=== PATIENT | male | born 1980 | race Two or more races ===

== ENCOUNTER 2018-05-04 22:55 | Emergency (ER) | payer SELFPAY ==
[~2018-05-04] VITALS: Ht 172.7 cm; Wt 79.4 kg
--- NOTE | 2018-05-04 23:46 | NUR ---
pt bbself from home c/c of l arm pain x1 week with cp and sob x today. pt is aaox4. resp even and unlabored. no s/s of acute distress noted. vss. pt placed on potline monitor and pox. pt has full range of motion of the upper and lower extremities. pt is accompanied by friend/family. pt safety and comfort measures in place. awaiting md for eval.
--- NOTE | 2018-05-05 00:15 | NUR ---
MABEL [phone]
[2018-05-05] MEDS ORDERED: ALBUTEROL FS 2.5 MG/3 ML VIAL.NEB ONE (00:24)
[2018-05-05] MEDS ORDERED: ALBUTEROL FS 2.5 MG/3 ML VIAL.NEB NEB ONE (00:30)
[2018-05-05] MEDS ORDERED: predniSONE 20 MG TABLET PO ONE (00:30)
[2018-05-05] MEDS ORDERED: predniSONE 20 MG TABLET ONE (00:30)
[2018-05-05] MEDS ORDERED: ASPIRIN 81 MG TAB.CHEW ONE (00:30)
[2018-05-05] MEDS ORDERED: ASPIRIN 81 MG TAB.CHEW PO ONE (00:30)
--- NOTE | 2018-05-05 00:50 | NUR ---
BREATHING TREATMENT COMPLETED AND PT STATES HE "FEELS MUCH BETTER". WILL CONTINUE TO MONITOR PT. VSS AT THIS TIME.
[2018-05-05 00:52] LABS: BASOPHILS % (AUTO) 0.4 % (0.0-2.0); EOSINOPHILS % (AUTO) 5.9 % (0.0-6.0); HEMATOCRIT 54 % (39-51); HEMOGLOBIN 18.1 g/dL (13.5-17.5); LYMPHOCYTES # (AUTO) 1.5 /CMM (0.8-4.8); LYMPHOCYTES % (AUTO) 19.9 % (20.0-44.0); MEAN CORPUSCULAR HEMOGLOBIN 31 PG (26.0-33.0); MEAN CORPUSCULAR HGB CONC 34 g/dl (31.0-36.0); MEAN CORPUSCULAR VOLUME 92 fL (80-96); MONOCYTES # (AUTO) 0.6 /CMM (0.1-1.30); MONOCYTES % (AUTO) 8.2 % (2.0-12.0); NEUTROPHILS % (AUTO) 65.6 % (43.0-81.0); PLATELET COUNT (AUTO) 234 /CMM (150-450); RDW COEFFICIENT OF VARIATION 12.5 (11.5-15.0); RED BLOOD CELL COUNT(AUTO) 5.86 MIL/uL (4.5-6.0); WHITE BLOOD COUNT (AUTO) 7.7 K/uL (4.3-11.0)
[2018-05-05 00:57] LABS: TROPONIN I < 0.017 ng/mL (0.00-0.056)
[2018-05-05 01:06] LABS: EOSINOPHILS % (MANUAL) 3 % (0-4); LYMPHOCYTES % (MANUAL) 18 % (16-48); MONOCYTES % (MANUAL) 6 % (0-11.0); NEUTROPHILS % (MANUAL) 73 (42-76)
[2018-05-05 01:12] LABS: ALANINE AMINOTRANSFERASE 106 U/L (12-78); ALBUMIN 3.9 g/dL (3.4-5.0); ALKALINE PHOSPHATASE 141 U/L (46-116); ASPARTATE AMINOTRANSFERASE 31 U/L (15-37); BILIRUBIN,TOTAL 0.4 mg/dL (0.2-1.0); CALCIUM, SERUM 9.1 mg/dL (8.5-10.1); CARBON DIOXIDE 27 mmol/L (21-32); CHLORIDE 98 mmol/L (98-107); CREATININE 1.3 mg/dL (0.6-1.3); POTASSIUM 4.2 mmol/L (3.5-5.1); SODIUM SERUM 135 mmol/L (136-145); TOTAL PROTEIN, SERUM 8.4 g/dL (6.4-8.2); UREA NITROGEN, BLOOD 11 mg/dL (7-18)
--- NOTE | 2018-05-05 01:21 | NUR ---
PT TO RESTROOM
[2018-05-05 01:24] LABS: B-TYPE NATRIURETIC PEPTIDE < 5 PG/ML (0-125)
[2018-05-05 01:25] LABS: GLUCOSE 484 mg/dL (74-106)
[2018-05-05] MEDS ORDERED: INSULIN REGULAR, HUMAN 100 UNIT/ML 10 ML VIAL IV ONE (02:00)
[2018-05-05] MEDS ORDERED: INSULIN REGULAR, HUMAN 100 UNIT/ML 10 ML VIAL ONE (02:27)
--- NOTE | 2018-05-05 03:43 | NUR ---
Patient discharged to home in stable condition. Written and verbal after care instructions given. Patient verbalizes understanding of instruction.IV removed. Catheter intact and site benign. Pressure and 4x4 applied to site. No bleeding noted. VSS UPON DISCHARGE
[2018-05-05 03:44] VITALS: BP 138/96
== END 2018-05-05 03:46 | disposition home or self-care (01) ==
LOC: ER 22:57
DX: R07.89 Other chest pain (principal); M25.512 Pain in left shoulder; E11.9 Type 2 diabetes mellitus without complications; F17.200 Nicotine dependence, unspecified, uncomplicated
CPT/HCPCS: 36415; 71045; 80048; 80076; 82962 ×2; 83880; 84484; 85025; 93005; 94640; 96372; 99285; A4606; J1815; J7512; Z7610

== ENCOUNTER 2020-09-03 18:52 | Emergency (ER) | payer BC, OTHER ==
[~2020-09-03] VITALS: Ht 170.2 cm; Wt 77.6 kg
[2020-09-03] MEDS ORDERED: NITROGLYCERIN 0.4 MG/TAB BOTTLE SL ONE (19:00)
[2020-09-03] MEDS ORDERED: ASPIRIN 325 MG TABLET PO ONE (19:00)
[2020-09-03] MEDS ORDERED: ASPIRIN 325 MG TABLET ONE (19:08)
--- NOTE | 2020-09-03 19:08 | NUR ---
PT AAOX4. BIBSELF C/O PRESSURE LIKE CHEST PAIN THAT STARTED LAST NIGHT. PT PLACED ON [employer] AND PULSE OX. VSS. NO ACUTE DISTRESS NOTED. MD AT BEDSIDE FOR EVAL. AWAITING ORDERS.
[2020-09-03] MEDS ORDERED: NITROGLYCERIN 0.4 MG/TAB BOTTLE ONE (19:11)
[2020-09-03 19:19] LABS: BASOPHILS # (AUTO) 0.1 /CMM (0.0-0.2); BASOPHILS % (AUTO) 0.9 % (0.0-2.0); EOSINOPHILS % (AUTO) 3.2 % (0.0-6.0); HEMATOCRIT 48 % (39-51); LYMPHOCYTES # (AUTO) 2.4 /CMM (0.8-4.8); LYMPHOCYTES % (AUTO) 24.3 % (20.0-44.0); MEAN CORPUSCULAR HGB CONC 33 g/dl (31.0-36.0); MEAN CORPUSCULAR VOLUME 88 fL (80-96); MONOCYTES # (AUTO) 0.9 /CMM (0.1-1.30); MONOCYTES % (AUTO) 9.4 % (2.0-12.0); NEUTROPHILS # (AUTO) 6.1 /CMM (1.8-8.9); NEUTROPHILS % (AUTO) 62.2 % (43.0-81.0); PLATELET COUNT (AUTO) 332 /CMM (150-450); RED BLOOD CELL COUNT(AUTO) 5.44 MIL/uL (4.5-6.0); WHITE BLOOD COUNT (AUTO) 9.8 K/uL (4.3-11.0)
--- NOTE | 2020-09-03 19:22 | NUR ---
SECOND NITRO SL GIVEN, MD AWARE.
--- NOTE | 2020-09-03 19:27 | NUR ---
RADIOLOGY AT BEDSIDE
[2020-09-03 19:34] LABS: CALCIUM, SERUM 9.8 mg/dL (8.5-10.1); CARBON DIOXIDE 30 mmol/L (21-32); CHLORIDE 103 mmol/L (98-107); CREATININE 1.1 mg/dL (0.6-1.3); GLUCOSE 112 mg/dL (74-106); POTASSIUM 3.2 mmol/L (3.5-5.1); SODIUM SERUM 139 mmol/L (136-145); UREA NITROGEN, BLOOD 13 mg/dL (7-18)
--- NOTE | 2020-09-03 19:36 | NUR ---
SPOKE TO PT, DENIES CP. ON [employer] AND PULSE OX. VSS.
--- NOTE | 2020-09-03 20:10 | NUR ---
IV removed. Catheter intact and site benign. Pressure and 4x4 applied to site. No bleeding noted. Patient discharged to home in stable condition. Written and verbal after care instructions given. Patient verbalizes understanding of instruction and RX. Pt ambulated with steady gait. vss. Denies cp.
[2020-09-03 20:35] VITALS: BP 120/76
== END 2020-09-03 20:35 | disposition home or self-care (01) ==
LOC: ER 18:53
DX: R07.89 Other chest pain (principal); E11.9 Type 2 diabetes mellitus without complications; Z79.899 Other long term (current) drug therapy; Z79.82 Long term (current) use of aspirin
CPT/HCPCS: 36415; 71045-TC; 80048-TC; 84484-TC; 85025-TC